=== PATIENT | male | born 1960 | race Caucasian/White ===

== ENCOUNTER 2019-08-20 09:01 | Outpatient (CLI) | payer OTHER, SELFPAY ==
--- NOTE | ~2019-08-20 | US_ITS ---
US right upper quadrant INDICATION: History of cirrhosis PROCEDURE: Realtime right upper abdominal ultrasound. COMPARISON: Ultrasound dated 07/04/2018 FINDINGS: The pancreas is normal without focal mass or pancreatic ductal dilation. There is increase d liver echotexture with nodular surface, compatible with cirrhosis. There is normal directional eboni w in the portal vein. Gallbladder is partially obscured by bowel gas. No definite gallstones or gallbladder wall thickening . Common bile duct measures 3 mm. No sonographic Salazar's sign. IMPRESSION: 1: Hyperechoic liver with nodular surface, compatible with cirrhosis. Reviewed, dictated and finalized at location A.
[2019-08-20 11:03] LABS: Hematocrit 42.4 % (42.0-52.0); Hemoglobin 13.9 g/dL (14.0-18.0); Mean Corpuscular HGB Conc 32.8 g/dl (32-36); Mean Corpuscular Hemoglobin 36.8 pg (26-34); Mean Corpuscular Volume 112.2 fl (80-100); Mean Platelet Volume 9.3 fl (7.4-10.4); Platelet Count Result 906 k/mm3 (150-375); Red Blood Count 3.78 M/mm3 (4.6-6.20); Red Cell Distribution Width 15.5 % (11.5-14.5)
[2019-08-20 11:13] LABS: Alanine Aminotransferase 36 U/L (4-50); Albumin Level 4.1 g/dL (3.5-5.1); Alkaline Phosphatase 112 U/L (38-126); Aspartate Amino Transferase 44 U/L (17-59); Bilirubin,Total 0.3 mg/dL (0.2-1.3); Blood Urea Nitrogen 13 mg/dL (9-20); Calcium 9.1 mg/dL (8.4-10.2); Carbon Dioxide 24 mmol/L (22-30); Chloride 103 mmol/L (98-107); Estimated Glomerular Filt Rate > 60; Glucose 103 mg/dL (75-110); Potassium 4.4 mmol/L (3.4-5.0); Sodium 137 mmol/L (137-145)
== END 2019-08-20 09:02 | disposition home or self-care (01) ==
PROVIDERS: PCP Physician Assistant
DX: K74.60 Unspecified cirrhosis of liver (principal)
CPT/HCPCS: 36415; 76705; 80053; 85027

== ENCOUNTER 2019-09-18 12:37 | Outpatient (CLI) | payer OTHER, SELFPAY ==
[2019-09-18 12:57] LABS: Basophils Absolute Auto 0.1 K/mm3 (0.0-0.1); Basophils Percent Auto 0.6 % (0.2-1.2); Eosinophils Absolute Auto 0.4 K/mm3 (0-0.3); Hematocrit 42.2 % (42.0-52.0); Hemoglobin 13.6 g/dL (14.0-18.0); Immature Granulocyte Absolute 0.03 K/mm3 (0.00-0.031); Immature Granulocyte Percent A 0.2 % (0-0.5); Lymphocytes Absolute Auto 3.25 K/mm3 (0.9-3.2); Lymphocytes Percent Auto 26.7 % (18.3-44.2); Mean Corpuscular HGB Conc 32.2 g/dl (32-36); Mean Corpuscular Hemoglobin 34.1 pg (26-34); Mean Corpuscular Volume 105.8 fl (80-100); Mean Platelet Volume 8.9 fl (7.4-10.4); Monocytes Absolute Auto 1.7 K/mm3 (0.1-0.6); Monocytes Percent Auto 13.9 % (2.6-8.5); Neutrophils Absolute Auto 6.7 K/mm3 (1.3-6.7); Neutrophils Percent Auto 55.6 % (45.5-73.1); Platelet Count Result 860 k/mm3 (150-375); Red Blood Count 3.99 M/mm3 (4.6-6.20); White Blood Count 12.2 K/mm3 (4.5-10.0)
[2019-09-18 13:00] LABS: Blood Urea Nitrogen 9 mg/dL (8-26); Carbon Dioxide 23 mmol/L (22-30); Chloride 102 mmol/L (98-109); Estimated Glomerular Filt Rate > 60; Glucose 101 mg/dL (70-105); Potassium 4.1 mmol/L (3.5-4.9); Sodium 137 mmol/L (138-146)
== END 2019-09-18 12:38 | disposition home or self-care (01) ==
LOC: ANHLAB 12:39
PROVIDERS: PCP Physician Assistant; Visit Provider Internal Medicine Hematology & Oncology
DX: D47.3 Essential (hemorrhagic) thrombocythemia (principal)
CPT/HCPCS: 36415; 80048; 85025

== ENCOUNTER 2019-10-29 08:06 | Outpatient (CLI) | payer OTHER, SELFPAY ==
[2019-10-29 08:25] LABS: Basophils Absolute Auto 0.1 K/mm3 (0.0-0.1); Basophils Percent Auto 0.8 % (0.2-1.2); Eosinophils Absolute Auto 0.2 K/mm3 (0-0.3); Eosinophils Percent Auto 2.1 % (0-4.4); Hematocrit 41.7 % (42.0-52.0); Hemoglobin 13.7 g/dL (14.0-18.0); Immature Granulocyte Absolute 0.06 K/mm3 (0.00-0.031); Immature Granulocyte Percent A 0.6 % (0-0.5); Lymphocytes Absolute Auto 3.23 K/mm3 (0.9-3.2); Mean Corpuscular HGB Conc 32.9 g/dl (32-36); Mean Corpuscular Hemoglobin 33.4 pg (26-34); Mean Corpuscular Volume 101.7 fl (80-100); Mean Platelet Volume 8.7 fl (7.4-10.4); Monocytes Absolute Auto 1.3 K/mm3 (0.1-0.6); Monocytes Percent Auto 13.2 % (2.6-8.5); Neutrophils Absolute Auto 5.2 K/mm3 (1.3-6.7); Neutrophils Percent Auto 51.3 % (45.5-73.1); Nucleated Red Blood Cells Perc 0.3 % (0.0-0.2); Platelet Count Result 759 k/mm3 (150-375); Red Cell Distribution Width 22.7 % (11.5-14.5); White Blood Count 10.1 K/mm3 (4.5-10.0)
[2019-10-29 08:29] LABS: Blood Urea Nitrogen 8 mg/dL (8-26); Carbon Dioxide 21 mmol/L (22-30); Chloride 104 mmol/L (98-109); Estimated Glomerular Filt Rate 34; Glucose 151 mg/dL (70-105); Sodium 139 mmol/L (138-146)
== END 2019-10-29 08:07 | disposition home or self-care (01) ==
LOC: ANHLAB 08:08
PROVIDERS: PCP Physician Assistant; Visit Provider Internal Medicine Hematology & Oncology
DX: D47.3 Essential (hemorrhagic) thrombocythemia (principal)
CPT/HCPCS: 36415; 80048; 85025

== ENCOUNTER 2019-12-10 10:21 | Outpatient (CLI) | payer OTHER, SELFPAY ==
[2019-12-10 10:42] LABS: Blood Urea Nitrogen 9 mg/dL (8-26); Carbon Dioxide 22 mmol/L (22-30); Chloride 104 mmol/L (98-109); Estimated Glomerular Filt Rate 32; Glucose 189 mg/dL (70-105); Potassium 3.8 mmol/L (3.5-4.9); Sodium 140 mmol/L (138-146)
[2019-12-10 10:44] LABS: Basophils Absolute Auto 0.1 K/mm3 (0.0-0.1); Basophils Percent Auto 0.5 % (0.2-1.2); Eosinophils Absolute Auto 0.4 K/mm3 (0-0.3); Eosinophils Percent Auto 3.3 % (0-4.4); Hematocrit 40.5 % (42.0-52.0); Hemoglobin 13.3 g/dL (14.0-18.0); Immature Granulocyte Absolute 0.04 K/mm3 (0.00-0.031); Immature Granulocyte Percent A 0.3 % (0-0.5); Lymphocytes Absolute Auto 3.57 K/mm3 (0.9-3.2); Lymphocytes Percent Auto 31.2 % (18.3-44.2); Mean Corpuscular HGB Conc 32.8 g/dl (32-36); Mean Corpuscular Hemoglobin 36.4 pg (26-34); Mean Platelet Volume 8.9 fl (7.4-10.4); Monocytes Absolute Auto 1.3 K/mm3 (0.1-0.6); Monocytes Percent Auto 11.5 % (2.6-8.5); Neutrophils Absolute Auto 6.1 K/mm3 (1.3-6.7); Neutrophils Percent Auto 53.2 % (45.5-73.1); Nucleated Red Blood Cells Absolute Auto 0.1 K/mm3 (0.0-0.012); Nucleated Red Blood Cells Perc 0.4 % (0.0-0.2); Platelet Count Result 675 k/mm3 (150-375); Red Blood Count 3.65 M/mm3 (4.6-6.20); White Blood Count 11.4 K/mm3 (4.5-10.0)
[2019-12-10 10:47] LABS: Platelet Estimate Increased (Adequate)
[2019-12-10 10:48] LABS: Ovalocytes 1+ (NORMAL); Target Cells 1+ (NORMAL)
[2019-12-10 10:49] LABS: Atypical Lymphocytes Present; Poikilocytosis 1+ (NORMAL)
== END 2019-12-10 10:22 | disposition home or self-care (01) ==
PROVIDERS: PCP Physician Assistant; Visit Provider Internal Medicine Hematology & Oncology
DX: D47.3 Essential (hemorrhagic) thrombocythemia (principal)
CPT/HCPCS: 36415; 80048; 85025

== ENCOUNTER 2020-02-11 11:25 | Outpatient (CLI) | payer OTHER, SELFPAY ==
[2020-02-11 11:48] LABS: Hematocrit 40.1 % (42.0-52.0); Hemoglobin 13.6 g/dL (14.0-18.0); Mean Corpuscular HGB Conc 33.9 g/dl (32-36); Mean Corpuscular Hemoglobin 42.8 pg (26-34); Mean Corpuscular Volume 126.1 fl (80-100); Mean Platelet Volume 8.7 fl (7.4-10.4); Platelet Count Result 707 k/mm3 (150-375); Red Blood Count 3.18 M/mm3 (4.6-6.20); Red Cell Distribution Width 14.7 % (11.5-14.5); White Blood Count 12.6 K/mm3 (4.5-10.0)
[2020-02-11 11:53] LABS: Blood Urea Nitrogen 8 mg/dL (8-26); Carbon Dioxide 20 mmol/L (22-30); Chloride 103 mmol/L (98-109); Estimated Glomerular Filt Rate > 60; Glucose 117 mg/dL (70-105); Potassium 3.9 mmol/L (3.5-4.9); Sodium 139 mmol/L (138-146)
== END 2020-02-11 11:26 | disposition home or self-care (01) ==
PROVIDERS: PCP Physician Assistant; Visit Provider Internal Medicine Hematology & Oncology
DX: D47.3 Essential (hemorrhagic) thrombocythemia (principal)
CPT/HCPCS: 36415; 80048; 85027

== ENCOUNTER 2020-04-21 13:03 | Outpatient (CLI) | payer OTHER, SELFPAY ==
[2020-04-21 13:26] LABS: Basophils Absolute Auto 0.1 K/mm3 (0.0-0.1); Basophils Percent Auto 0.6 % (0.2-1.2); Eosinophils Absolute Auto 0.3 K/mm3 (0-0.3); Eosinophils Percent Auto 2.4 % (0-4.4); Hematocrit 41.5 % (42.0-52.0); Hemoglobin 14.1 g/dL (14.0-18.0); Immature Granulocyte Absolute 0.02 K/mm3 (0.00-0.031); Immature Granulocyte Percent A 0.2 % (0-0.5); Lymphocytes Absolute Auto 2.89 K/mm3 (0.9-3.2); Lymphocytes Percent Auto 27.8 % (18.3-44.2); Mean Corpuscular Hemoglobin 40.9 pg (26-34); Mean Corpuscular Volume 120.3 fl (80-100); Mean Platelet Volume 8.7 fl (7.4-10.4); Monocytes Absolute Auto 1.2 K/mm3 (0.1-0.6); Monocytes Percent Auto 11.4 % (2.6-8.5); Neutrophils Percent Auto 57.6 % (45.5-73.1); Nucleated Red Blood Cells Perc 0.2 % (0.0-0.2); Platelet Count Result 575 k/mm3 (150-375); Red Blood Count 3.45 M/mm3 (4.6-6.20); Red Cell Distribution Width 16.3 % (11.5-14.5); White Blood Count 10.4 K/mm3 (4.5-10.0)
[2020-04-21 13:30] LABS: Blood Urea Nitrogen 10 mg/dL (8-26); Carbon Dioxide 22 mmol/L (22-30); Chloride 100 mmol/L (98-109); Estimated Glomerular Filt Rate 52; Glucose 176 mg/dL (70-105); Potassium 4.5 mmol/L (3.5-4.9); Sodium 136 mmol/L (138-146)
[2020-04-21 16:44] LABS: Alanine Aminotransferase 31 U/L (4-50); Albumin Level 3.8 g/dL (3.5-5.1); Alkaline Phosphatase 106 U/L (38-126); Anion Gap 14 mmol/L (8-16); Aspartate Amino Transferase 41 U/L (17-59); Bilirubin,Total 0.4 mg/dL (0.2-1.3); Blood Urea Nitrogen 10 mg/dL (9-20); Calcium 9.2 mg/dL (8.4-10.2); Carbon Dioxide 22 mmol/L (22-30); Chloride 99 mmol/L (98-107); Estimated Glomerular Filt Rate > 60; Glucose 165 mg/dL (75-110); Potassium 5.1 mmol/L (3.4-5.0); Sodium 135 mmol/L (137-145)
== END 2020-04-21 13:04 | disposition home or self-care (01) ==
PROVIDERS: PCP Physician Assistant; Visit Provider Internal Medicine Hematology & Oncology
DX: D47.3 Essential (hemorrhagic) thrombocythemia (principal); Z90.81 Acquired absence of spleen
CPT/HCPCS: 36415; 80048; 80053; 85025

== ENCOUNTER 2020-05-21 12:25 | Outpatient (CLI) | payer OTHER, SELFPAY ==
[2020-05-21 12:40] LABS: Basophils Absolute Auto 0.1 K/mm3 (0.0-0.1); Basophils Percent Auto 0.9 % (0.2-1.2); Eosinophils Absolute Auto 0.2 K/mm3 (0-0.3); Eosinophils Percent Auto 2.3 % (0-4.4); Hematocrit 44.1 % (42.0-52.0); Hemoglobin 14.5 g/dL (14.0-18.0); Immature Granulocyte Absolute 0.05 K/mm3 (0.00-0.031); Immature Granulocyte Percent A 0.5 % (0-0.5); Lymphocytes Absolute Auto 3.01 K/mm3 (0.9-3.2); Lymphocytes Percent Auto 28.7 % (18.3-44.2); Mean Corpuscular HGB Conc 32.9 g/dl (32-36); Mean Corpuscular Hemoglobin 40.1 pg (26-34); Mean Corpuscular Volume 121.8 fl (80-100); Mean Platelet Volume 8.9 fl (7.4-10.4); Monocytes Absolute Auto 1.2 K/mm3 (0.1-0.6); Monocytes Percent Auto 11.3 % (2.6-8.5); Neutrophils Absolute Auto 5.9 K/mm3 (1.3-6.7); Neutrophils Percent Auto 56.3 % (45.5-73.1); Nucleated Red Blood Cells Perc 0.4 % (0.0-0.2); Platelet Count Result 664 k/mm3 (150-375); Red Blood Count 3.62 M/mm3 (4.6-6.20); White Blood Count 10.5 K/mm3 (4.5-10.0)
[2020-05-21 17:18] LABS: Anion Gap 9 mmol/L (8-16); Blood Urea Nitrogen 10 mg/dL (9-20); Calcium 9.1 mg/dL (8.4-10.2); Carbon Dioxide 27 mmol/L (22-30); Chloride 106 mmol/L (98-107); Estimated Glomerular Filt Rate > 60; Glucose 106 mg/dL (75-110); Potassium 4.5 mmol/L (3.4-5.0); Sodium 142 mmol/L (137-145)
== END 2020-05-21 12:26 | disposition home or self-care (01) ==
PROVIDERS: PCP Physician Assistant; Visit Provider Internal Medicine Hematology & Oncology
DX: D47.3 Essential (hemorrhagic) thrombocythemia (principal)
CPT/HCPCS: 36415; 80048; 85025

== ENCOUNTER 2020-06-23 12:01 | Outpatient (CLI) | payer OTHER, SELFPAY ==
[2020-06-23 12:22] LABS: Basophils Absolute Auto 0.1 K/mm3 (0.0-0.1); Basophils Percent Auto 0.7 % (0.2-1.2); Eosinophils Absolute Auto 0.2 K/mm3 (0-0.3); Eosinophils Percent Auto 2.3 % (0-4.4); Hematocrit 45.4 % (42.0-52.0); Hemoglobin 15.1 g/dL (14.0-18.0); Immature Granulocyte Absolute 0.02 K/mm3 (0.00-0.031); Immature Granulocyte Percent A 0.2 % (0-0.5); Lymphocytes Absolute Auto 2.46 K/mm3 (0.9-3.2); Lymphocytes Percent Auto 30.1 % (18.3-44.2); Mean Corpuscular HGB Conc 33.3 g/dl (32-36); Mean Corpuscular Hemoglobin 40.6 pg (26-34); Mean Platelet Volume 8.8 fl (7.4-10.4); Monocytes Percent Auto 12.5 % (2.6-8.5); Neutrophils Absolute Auto 4.4 K/mm3 (1.3-6.7); Neutrophils Percent Auto 54.2 % (45.5-73.1); Nucleated Red Blood Cells Perc 0.2 % (0.0-0.2); Platelet Count Result 624 k/mm3 (150-375); Red Blood Count 3.72 M/mm3 (4.6-6.20); White Blood Count 8.2 K/mm3 (4.5-10.0)
== END 2020-06-23 12:02 | disposition home or self-care (01) ==
PROVIDERS: PCP Physician Assistant; Visit Provider Internal Medicine Hematology & Oncology
DX: D47.3 Essential (hemorrhagic) thrombocythemia (principal)
CPT/HCPCS: 36415; 85025